=== PATIENT | female | born 1980 | race African-American/Black ===

== ENCOUNTER 2022-03-21 06:40 | Observation (INO) ==
[2022-03-19 13:02] LABS: Basophils % 0.5 % (0.0-0.8); Eosinophils # 0.1 10*3/uL (0.0-0.87); Eosinophils % 2.2 % (0.00-10.9); Hematocrit 38.9 VOL% (35.7-47.0); Hemoglobin 12.2 GM/DL (12.0-16.0); Immature Granulocytes % 0.5 %; Immature Granulocytes Absolute 0.03 #; Lymphocytes # 2.5 10*3/uL (1.4-4.0); Lymphocytes % 38.8 % (21.3-54.2); Mean Corpuscular HGB Conc 31.4 GM/DL (32-36); Mean Corpuscular Volume 79.9 FL (87-102); Mean Platelet Volume 10.1 FL (9.6-12.0); Monocytes # 0.5 10*3/uL (0.11-0.8); Monocytes % 7.9 % (1.7-12.7); Neutrophils % 50.1 % (38.7-73.9); Platelet Count 248 T/CUMM (130-400); Red Blood Count 4.87 MC/CUMM (3.8-5.5); Red Cell Distribution Width 15.4 % (9.3-17.3); White Blood Count 6.3 T/CUMM (4-12)
[2022-03-19 13:30] LABS: Calcium 8.8 MG/DL (8.5-10.1); Osmolality,Calculated 276.5 MOS/KG (273-304); Potassium 4.2 MMOL/L (3.5-5.1); Thyroid Stimulating Hormone 1.11 uIU/ml (0.358-3.74)
[2022-03-21] MEDS ORDERED: FAMOTIDINE 20 MG TABLET PO ONE (07:01)
[2022-03-21] MEDS ORDERED: DIAZEPAM 5 MG TABLET PO ONE (07:01)
[2022-03-21] MEDS ORDERED: LACTATED RINGERS 1,000 ML IV SCH (07:30)
[2022-03-21] MEDS ORDERED: fentaNYL 100 MCG/2 ML VIAL ONE ×2 (09:02→09:42)
[2022-03-21] MEDS ORDERED: MIDAZOLAM 2 MG/2 ML VIAL ONE (09:02)
[2022-03-21] MEDS ORDERED: propofoL 200 MG/20 ML VIAL IV ONE (09:03)
[2022-03-21] MEDS ORDERED: LIDOCAINE 2% 5 ML VIAL ONE (09:03)
[2022-03-21] MEDS ORDERED: SUCCINYLCHOLINE 200 MG/10 ML VIAL ONE (09:04)
[2022-03-21] MEDS ORDERED: ROCURONIUM 50 MG/5 ML VIAL IV ONE ×2 (09:04)
[2022-03-21] MEDS ORDERED: LIDOCAINE 1%/EPI INJ 20 ML VIAL ONE (09:22)
[2022-03-21] MEDS ORDERED: BUPIVACAINE MPF 0.25% 10 ML VIAL ONE (09:22)
[2022-03-21] MEDS ORDERED: DEXAMETHASONE 4 MG/1 ML VIAL ONE ×2 (09:31)
[2022-03-21] MEDS ORDERED: SEVOFLURANE 1 UNIT/15 MINUTE INH ONE ×3 (09:58→10:43)
[2022-03-21] MEDS ORDERED: PHENYLEPHRINE 1 MG/10 ML SYRINGE IV ONE (09:58)
[2022-03-21] MEDS ORDERED: LACTATED RINGERS 1,000 ML IV ONE (10:00)
[2022-03-21] MEDS ORDERED: TISSUE ADHESIVE 1 EACH APPLICATOR TOP ONE (10:31)
[2022-03-21] MEDS ORDERED: ONDANSETRON 4 MG/2 ML VIAL ONE (10:43)
[2022-03-21] MEDS ORDERED: MORPHINE 2 MG/1 ML SYRINGE IV PRN (10:54)
[2022-03-21] MEDS ORDERED: ONDANSETRON 4 MG/2 ML VIAL IV PRN (11:46)
[2022-03-21] MEDS ORDERED: HYDROmorphone 1 MG/1 ML SYRINGE ONE (11:48)
[2022-03-21] MEDS: ONDANSETRON 4 MG/2 ML VIAL IV PRN ×3 (11:51→18:02)
[2022-03-21] MEDS: HYDROmorphone 1 MG/1 ML SYRINGE IV PRN ×2 (11:51→12:10)
[2022-03-22 11:57] VITALS: BP 108/70
== END 2022-03-22 13:21 | disposition home or self-care (01) ==
LOC: N.3E 06:40 → N.OR 06:40 → N.SDSINP 06:40 → N.3E 12:27
PROVIDERS: ADMIT Surgery; ATTEND Surgery